=== PATIENT | female | born 1945 | race Caucasian/White ===

== ENCOUNTER → 2018-12-28 | Outpatient (CLI) | payer MEDICARE ==
[~2018-12-28] MED LIST: FENTANYL CITRATE/PF 100MCG/2 ML INJ ONE; LIDOCAINE HCL 1% LOCAL INJ 20 ML VIAL ONE; MIDAZOLAM HCL 2 MG/2 ML VIAL ONE; SODIUM CHLORIDE 0.9% 500ML 0 ML ONE
[2018-12-28 10:16] LABS: BASOPHILS # (AUTO) 0.1 (0.0-0.1); BASOPHILS % 0.7 % (0.0-1.0); EOSINOPHILS # (AUTO) 0.2 (0.0-0.4); EOSINOPHILS % 3.2 % (0.0-6.0); HEMATOCRIT 43.9 % (34.2-44.1); HEMOGLOBIN 15.3 g/dL (12.0-16.0); LYMPHOCYTES # (AUTO) 2.5 (1.0-3.2); LYMPHOCYTES % 33.4 % (18.0-39.1); MEAN CORPUSCULAR HEMOGLOBIN 32.4 pg (28-32); MEAN CORPUSCULAR HGB CONC 34.9 g/dL (31-35); MONOCYTES # (AUTO) 0.8 (0.2-0.8); MONOCYTES % 10.3 % (4.4-11.3); NEUTROPHILS # (AUTO) 3.9 (2.1-6.9); PLATELET COUNT 321 x10e3/uL (140-360); RED BLOOD COUNT 4.72 x10e6/uL (3.6-5.1); RED CELL DISTRIBUTION WIDTH 13.2 % (11.7-14.4)
[2018-12-28 10:21] LABS: INR 0.9; PROTHROMBIN TIME 12.6 seconds (11.9-14.5)
[2018-12-28 10:22] LABS: PARTIAL THROMBOPLASTIN TIME 28.4 seconds (23.8-35.5)
--- NOTE | 2018-12-28 12:28 | Diagnostic Imaging Report ---
PROCEDURE: CT-guided left lung biopsy Procedural Personnel Attending physician(s): Susannah Wong MD Fellow physician(s): None Resident physician(s): None Advanced practice provider(s): None Pre-procedure diagnosis: Left upper lobe lung mass Post-procedure diagnosis: Same Indication: Histopathologic diagnosis Previous biopsy of same target (QCDR): No Additional clinical history: None Complications: No immediate complications. IMPRESSION: CT-guided biopsy of left upper lobe lung mass. Plan: Specimen(s) sent for evaluation. PROCEDURE SUMMARY: - Percutaneous CT-guided coaxial core needle biopsy of left upper lobe lung mass. - Additional procedure(s): None PROCEDURE DETAILS: Pre-procedure Reference imaging for biopsy target: Outside chest CT Consent: Informed consent for the procedure including risks, benefits and alternatives was obtained and time-out was performed prior to the procedure. Preparation: The site was prepared and draped using maximal sterile barrier technique including cutaneous antisepsis. Anesthesia/sedation Level of anesthesia/sedation: Moderate sedation (conscious sedation) Anesthesia/sedation administered by: Independent trained observer under attending supervision with continuous monitoring of the patient?s level of consciousness and physiologic status Total intra-service sedation time (minutes): 30 Imaging prior to biopsy The patient was positioned supine. Initial imaging was performed using noncontrast CT. Biopsy target: - Maximal diameter (cm): 2.2 - Location: Left upper lobe Other findings: None Biopsy Local anesthesia was administered. Under CT guidance, the biopsy needle was advanced to the target and biopsy was performed. Coaxial needle: 19 gauge Core needle biopsy device: Cook Core needle size: 20 gauge Number of core specimens: 4 Fine needle aspiration device: Chiba needle Fine needle size: 22 gauge Number of FNA specimens: 3 On-site biopsy touch preparation: Yes Additional sampling recommendations: None Preliminary assessment of sample adequacy: Adequate Needle removal The biopsy needle was removed and a sterile dressing was applied. Tract embolization: None Imaging following biopsy Immediate post-biopsy imaging was performed using noncontrast CT. Post-biopsy imaging findings: No significant pneumothorax. Contrast Contrast agent: None Contrast volume (mL): [address] dose length product (mGy-cm): 540.1 Additional Details Additional description of procedure: None Equipment details: None Specimens removed: Biopsy samples as detailed above Estimated blood loss (mL): Less than 10 Standardized report: [id number] Attestation Signer name: Susannah Wong MD I attest that I was present for the entire procedure. I reviewed the stored images and agree with the report as written. Signed by: Susannah Wong MD on 12/28/2018 12:25 PM
--- NOTE | 2018-12-28 13:10 | Diagnostic Imaging Report ---
EXAMINATION: CHEST XRAY POST PROCEDURE INDICATION: Post procedure COMPARISON: Lung biopsy of earlier the same day. FINDINGS: LINES/TUBES:None LUNGS:The lungs are well-inflated. Redemonstration of the left upper lobe mass and adjacent postbiopsy findings. PLEURA:No pleural effusion or pneumothorax. MEDIASTINUM:The cardiomediastinal silhouette appears normal in size and shape. BONES/SOFT TISSUES:No acute osseous injury. ABDOMEN:No free air under the diaphragm. IMPRESSION: No pneumothorax status post left lung biopsy. Signed by: Susannah Wong MD on 12/28/2018 1:07 PM
== END ==
LOC: CT 09:06
PROVIDERS: ATTEND Internal Medicine Critical Care Medicine
DX: R91.8 Other nonspecific abnormal finding of lung field (principal)
CPT/HCPCS: 10009; 32405; 36415; 71045; 85025; 85610; 85730; 88172; 88173; 88305; J2001; J2250; J3010; 88342; 99152; 99153; J7040

== ENCOUNTER → 2020-10-16 | Outpatient (CLI) | payer MEDICARE | LOC: RAD 09:05 | PROVIDERS: ATTEND Student in an Organized Health Care Education/Training Program | DX: M54.5 Low back pain (principal) | CPT/HCPCS: 72100 ==